=== PATIENT | male | born 1965 | race Caucasian/White ===

== ENCOUNTER 2017-07-19 11:24 | Emergency (ER) | payer MEDICARE ==
[~2017-07-19] VITALS: Ht 167.6 cm; Wt 78.0 kg
[~2017-07-19 11:24] MED LIST: AMITRIPTYLINE10 MG PO; AMOXIL500 MG PO; ANAPROX DS550 MG PO; AUGMENTIN 875 M1 TAB PO; CHLORHEXIDINE G10 M1 PO; HYDROCODONE BIT1 T11 PO; IBU800 MG PO; LISINOPRIL10 M1 PO; METFORMIN500 MG PO; NAPROSYN500 MG PO; NAPROXEN500 M1 PO; NKHM; PEN-VEE K500 MG PO; PENICILLIN VK500 MG PO; Peridex 473 ML473 ML PO; TRAMADOL HCL50 MG PO; VITAMIN D1000 IU PO; VITAMIN D50000 I3 PO; ZANTAC150 MG PO; ZITHROMAX Z PA250 MG PO; ZOFRAN4 MG PO
[2017-07-19 11:29] VITALS: BP 123/88
== END 2017-07-19 13:05 | disposition left against medical advice (07) ==
LOC: ED 11:24
DX: T15.81XA Foreign body in other and multiple parts of external eye, right eye, initial encounter (principal); F17.210 Nicotine dependence, cigarettes, uncomplicated; Z90.49 Acquired absence of other specified parts of digestive tract; Z98.890 Other specified postprocedural states; Z79.899 Other long term (current) drug therapy; X58.XXXA Exposure to other specified factors, initial encounter; Y93.89 Activity, other specified; Y92.69 Other specified industrial and construction area as the place of occurrence of the external cause; Y99.9 Unspecified external cause status

== ENCOUNTER → 2019-10-24 | Outpatient (CLI) | payer MEDICARE | END | disposition home or self-care (01) | LOC: COVID19 10-22 00:32 | DX: U07.1 COVID-19 (principal) ==

== ENCOUNTER → 2019-11-12 | Outpatient (CLI) | payer MEDICARE ==
[2019-11-12 17:17] LABS: VITAMIN D, 25-HYDROXY 33.4 ng/mL (30-100)
== END | disposition home or self-care (01) ==
LOC: LAB 16:05
PROVIDERS: Family Medicine
DX: E11.65 Type 2 diabetes mellitus with hyperglycemia (principal); R53.83 Other fatigue; R10.9 Unspecified abdominal pain; R19.7 Diarrhea, unspecified; F39 Unspecified mood [affective] disorder; E55.9 Vitamin D deficiency, unspecified; R35.0 Frequency of micturition